=== PATIENT | male | born 1940 | race Caucasian/White ===

== ENCOUNTER 2017-02-07 11:41 | Emergency (ER) | payer MEDICARE | END 2017-02-07 15:08 | disposition home or self-care (01) | LOC: ER1 11:41 | DX: M62.838 Other muscle spasm (principal); M43.22 Fusion of spine, cervical region; M47.892 Other spondylosis, cervical region | CPT/HCPCS: 36415; 72125; 96372; 99283; J1100; J1885 ==

== ENCOUNTER 2020-10-05 21:39 | Observation (INO) | payer MEDICARE, OTHER ==
[~2020-10-05] VITALS: Ht 170.2 cm; Wt 106.1 kg
[~2020-10-05 21:39] MED LIST: ASPIR 8181 MG PO; COUMADIN5 MG PO; HYDRALAZINE HCL25 MG PO; LASIX20 MG PO; LISINOPRIL20 MG PO; LOPRESSOR50 MG PO; NITROGLYCERIN0.4 MG SL; OMEPRAZOLE20 M1 PO
[2020-10-05 23:22] LABS: RED BLOOD COUNT 4.53 M/UL (4.20-5.50); WHITE BLOOD COUNT 5.3 K/UL (4.5-11.0)
[2020-10-06] MEDS ORDERED: GABAPENTIN600 MG PO (04:32)
[2020-10-06] MEDS ORDERED: ENTRESTO 49 MG1 EACH PO (04:33)
[2020-10-06 06:28] LABS: HEMOGLOBIN 13.5 gm/dl (14.0-17.5); RED BLOOD COUNT 4.42 M/UL (4.20-5.50); WHITE BLOOD COUNT 4.5 K/UL (4.5-11.0)
[2020-10-07 02:32] LABS: HEMOGLOBIN 14.6 gm/dl (14.0-17.5); RED BLOOD COUNT 4.7 M/UL (4.20-5.50)
[2020-10-07 02:43] LABS: WHITE BLOOD COUNT 6.9 K/UL (4.5-11.0)
[2020-10-07] MEDS ORDERED: LEVOFLOXACIN500 MG PO (11:14)
[2020-10-07] MEDS ORDERED: CLEOCIN HCL300 MG PO (11:14)
== END 2020-10-07 11:54 | disposition home or self-care (01) ==
LOC: ER1 21:39 → CDU 10-06 00:46 → MED SURG 4 10-06 00:46 → PROG CARE 10-06 16:30 → EDBD 10-07 11:54
PROVIDERS: Emergency Medicine; Internal Medicine Infectious Disease; ADMIT Internal Medicine
DX: T82.120A Displacement of cardiac electrode, initial encounter (principal); I25.10 Atherosclerotic heart disease of native coronary artery without angina pectoris; I47.2 Ventricular tachycardia; E78.5 Hyperlipidemia, unspecified; I11.0 Hypertensive heart disease with heart failure; I50.22 Chronic systolic (congestive) heart failure; I25.2 Old myocardial infarction; I25.5 Ischemic cardiomyopathy; I49.5 Sick sinus syndrome; I44.7 Left bundle-branch block, unspecified; J18.9 Pneumonia, unspecified organism; J98.11 Atelectasis; I08.2 Rheumatic disorders of both aortic and tricuspid valves; J44.9 Chronic obstructive pulmonary disease, unspecified; Z20.822 Contact with and (suspected) exposure to COVID-19; Z95.1 Presence of aortocoronary bypass graft; Z95.5 Presence of coronary angioplasty implant and graft; Z88.8 Allergy status to other drugs, medicaments and biological substances; Z95.2 Presence of prosthetic heart valve; Z79.82 Long term (current) use of aspirin; Z79.899 Other long term (current) drug therapy
CPT/HCPCS: ECHO; 33225; 33241; 33249; 36415; 71045; 80053; 82550; 82553; 83735; 83874; 84484; 85025; 85610; 93005; 93306; 93641; 96365; 96366; 99152; 99153; 99284; C1769; C1777; C1882; C1898; C1900; G0378; J1200; J1644; J2250; J3010; J3370; J7040; J7050; J7070; Q9965; U0002

== ENCOUNTER → 2021-03-03 | Outpatient (CLI) | payer MEDICARE ==
[~2021-03-03] MED LIST changes: +CLEOCIN HCL300 MG PO; +ENTRESTO 49 MG1 EACH PO; +GABAPENTIN600 MG PO; +LEVOFLOXACIN500 MG PO
== END ==
LOC: EXRD 12:47 → EDBD 13:00 → EXRD 13:00
DX: I73.9 Peripheral vascular disease, unspecified (principal); R22.43 Localized swelling, mass and lump, lower limb, bilateral
CPT/HCPCS: 93925; 93970

== ENCOUNTER → 2021-04-19 | Outpatient (CLI) | payer MEDICARE | LOC: HEART 5 09:53 | DX: R06.02 Shortness of breath (principal) | CPT/HCPCS: 94010 ==

== ENCOUNTER → 2021-07-26 | Outpatient (CLI) | payer MEDICARE ==
[~2021-07-26] MED LIST changes: +ALDACTONE25 MG PO; +AMIODARONE HCL200 MG PO; +ATROVENT-H0.065 GM/I INH; +CYMBALTA 30 MG30 MG PO; +ISOSORBIDE MONO30 MG PO; +MIRAPEX1 MG PO
== END ==
LOC: KOH-I 10:30
DX: R55 Syncope and collapse (principal); I65.23 Occlusion and stenosis of bilateral carotid arteries
CPT/HCPCS: 93880; J7040

== ENCOUNTER → 2021-07-28 | Outpatient (CLI) | payer MEDICARE ==
[2021-07-28 06:46] LABS: HEMOGLOBIN 14.7 gm/dl (14.0-17.5); RED BLOOD COUNT 4.62 M/UL (4.20-5.50); WHITE BLOOD COUNT 5.2 K/UL (4.5-11.0)
== END ==
LOC: CATH 07-18 07:30
PROVIDERS: Internal Medicine Cardiovascular Disease
DX: I48.19 Other persistent atrial fibrillation (principal); I48.0 Paroxysmal atrial fibrillation; I50.22 Chronic systolic (congestive) heart failure; I25.10 Atherosclerotic heart disease of native coronary artery without angina pectoris; I25.5 Ischemic cardiomyopathy; Z79.01 Long term (current) use of anticoagulants; Z20.822 Contact with and (suspected) exposure to COVID-19; Z95.810 Presence of automatic (implantable) cardiac defibrillator; Z95.1 Presence of aortocoronary bypass graft; Z95.4 Presence of other heart-valve replacement; Z87.891 Personal history of nicotine dependence
CPT/HCPCS: 36415; 80048; 85027; 92960; 93005; J1200; J1742; J2250; J2310; J3010; J7040

== ENCOUNTER → 2021-10-05 | Outpatient (CLI) | payer MEDICARE | LOC: HEART 5 09:24 | DX: R06.02 Shortness of breath (principal); Z79.899 Other long term (current) drug therapy | CPT/HCPCS: 94010; 94729 ==